=== PATIENT | female | born 1995 | race Caucasian/White ===

== ENCOUNTER 2022-08-16 12:10 | Outpatient (CLI) | payer MEDICAID, SELFPAY ==
--- NOTE | 2022-08-16 12:15 | CRLHL7_ITS ---
For Patients: As a result of the Cures Act, medical imaging exams and procedure reports are released immediately into your electronic medical record. You may view this report before your referring provider. If you have questions, please contact your health care provider. INDICATION: Evaluate size and dates TECHNIQUE: Ultrasound OB pelvis transvaginal. Real time garcia scale imaging of the pelvis was performed. COMPARISON: None FINDINGS: Sonographic imaging demonstrates a single living intrauterine gestation. The embryo demonstrates a regular cardiac rate measuring 176 beats per minute. The embryo`s crown rump length measurement of 1.8 cm corresponds to a gestational age of 8 weeks 2 days with a sonographic due date of 10/27/2022. There is a normal appearing yolk sac. There are no gross abnormalities noted within the embryo at this early state of development. The placenta has not yet developed. The gestational sac has a normal appearance and there is no evidence of a perigestational hemorrhage. The amount of fluid within the sac appears appropriate for gestational age. The cervix is closed. The myometrium appears normal. Left ovary is normal. The right ovary is not visualized. There are no suspicious fluid collections noted in the cul-de-sac. IMPRESSION: Viable intrauterine . Gestational age calculated at 8 weeks 2 days with a sonographic due date of 06/26/2023 . Image consistent with a severe no abnormalities seen. Dictated by sJ Treviño MD @ 08/16/2022 2:15:47 PM (Electronically Signed)
== END 2022-08-16 12:11 | disposition home or self-care (01) ==
PROVIDERS: Visit Provider Physician Assistant
DX: Z34.91 Encounter for supervision of normal pregnancy, unspecified, first trimester (principal); Z3A.08 8 weeks gestation of pregnancy
CPT/HCPCS: 76817

== ENCOUNTER 2022-08-16 13:14 | Outpatient (CLI) | payer MEDICAID, SELFPAY ==
[2022-08-16 17:20] LABS: Chlamydia DNA Amplified* NOT DETECTED (No Detected); GC DNA Amplified* NOT DETECTED (No Detected)
[2022-08-16 20:49] LABS: Hepatitis B Surface Antigen* Negative (Negative)
[2022-08-16 20:58] LABS: HIV 1/2/P24 Combo Screen* Negative (Negative)
[2022-08-16 21:07] LABS: Hepatitis C Virus Antibody* Negative (Negative)
[2022-08-19 06:56] LABS: Rapid Plasma Reagin (RPR) Non Reactive (Non Reactive)
== END 2022-08-16 13:15 | disposition home or self-care (01) ==
PROVIDERS: Visit Provider Physician Assistant
DX: O21.9 Vomiting of pregnancy, unspecified (principal); Z34.91 Encounter for supervision of normal pregnancy, unspecified, first trimester; Z3A.08 8 weeks gestation of pregnancy
CPT/HCPCS: 86592; 86703; 86762; 86787; 86803; 86850; 86900; 86901; 87086; 87340; 87491; 87591

== ENCOUNTER 2022-11-03 13:52 | Outpatient (CLI) | payer MEDICAID, SELFPAY | END 2022-11-03 13:53 | disposition home or self-care (01) | LOC: US 13:52 | PROVIDERS: Visit Provider Pediatrics Neonatal-Perinatal Medicine | DX: O34.212 Maternal care for vertical scar from previous cesarean delivery (principal); Z3A.19 19 weeks gestation of pregnancy | CPT/HCPCS: 76811 ==

== ENCOUNTER 2022-12-29 09:19 | Outpatient (CLI) | payer MEDICAID, SELFPAY | END 2022-12-29 09:20 | disposition home or self-care (01) | LOC: NFLDREF 12-31 15:28 | PROVIDERS: Visit Provider Obstetrics & Gynecology | DX: Z34.92 Encounter for supervision of normal pregnancy, unspecified, second trimester (principal); Z3A.27 27 weeks gestation of pregnancy | CPT/HCPCS: 86592 ==

== ENCOUNTER 2023-01-12 09:58 | Outpatient (CLI) | payer MEDICAID, SELFPAY ==
--- NOTE | 2023-01-12 09:45 | CRLHL7_ITS ---
For Patients: As a result of the Century Cures Act, medical imaging exams and procedure reports are released immediately into your electronic medical record. You may view this report before your referring provider. If you have questions, please contact your health care provider. INDICATION: Third trimester scan, evaluate growth. Obesity. COMPARISON: 11/03/2022 TECHNIQUE: Real time garcia scale imaging of the fetus was performed. FINDINGS: Sonographic imaging demonstrates a single living intrauterine gestation. Fetus demonstrates a regular cardiac rate of 130 beats per minute. Fetus has a breech position. The placenta lies anteriorly. Amniotic fluid volume appears normal and there is a single deepest vertical pocket: 8.3 cm. FELIPE 22.2 cm. The estimated weight is 1335gm which lies at the 19th %. On the prior OB ultrasound exam dated 11/03/2022 the estimated weight was at the 83rd%. BPD 16th percentile. HC 35th percentile. AC 28th percentile. FL 11th percentile. The HC/AC ratio measures 1.11 range (0.99-1.20). IMPRESSION: Sonographic gestational age 29 weeks 2 days and sonographic due date 03/28/2023. Good correlation with dates. Normal interval growth. Estimated weight 19 percentile. Abdominal circumference 28th percentile. Dictated by Js Merida MD @ 01/12/2023 11:38:44 AM (Electronically Signed)
== END 2023-01-12 09:59 | disposition home or self-care (01) ==
LOC: US 09:58
PROVIDERS: Visit Provider Obstetrics & Gynecology
DX: O99.213 Obesity complicating pregnancy, third trimester (principal); Z3A.29 29 weeks gestation of pregnancy
CPT/HCPCS: 76816

== ENCOUNTER 2023-02-24 08:13 | Outpatient (CLI) | payer MEDICAID, SELFPAY ==
--- NOTE | 2023-02-24 08:15 | US_ITS ---
Patient: YOANNA FAIR Facility:?[facility] Patient ID:?[id number] Site Patient ID:?[id number]. Site :?[id number] Study:?US-OB Pelvis -02/24/2023 8:59:55 AM Ordering Physician:ABEL TRIPP Final Report: INDICATION: OBESITY COMPARISON: 02/14/2023 TECHNIQUE: Real time garcia scale imaging of the fetus was performed. Without non-stress testing. FINDINGS: Sonographic imaging demonstrates a single living intrauterine gestation. Fetus demonstrates a regular cardiac rate of 145 beats per minute. Fetus has a vertex position. The amniotic fluid volume appears normal and there is a single deepest pocket measurement of 8.1 cm. The fetus was active and demonstrated normal breathing movements. There was normal flexion and extension of the trunk and extremities. IMPRESSION: Normal biophysical profile score of 8 out of 8. Dictated by Js Merida MD @ 02/24/2023 9:36:25 AM Signed by:?Js Merida MD @02/24/2023 9:36:25 AM (Electronic Signature)
== END 2023-02-24 08:14 | disposition home or self-care (01) ==
LOC: US 08:13
PROVIDERS: PCP Obstetrics & Gynecology; Visit Provider Obstetrics & Gynecology
DX: O99.210 Obesity complicating pregnancy, unspecified trimester (principal)
CPT/HCPCS: 76819

== ENCOUNTER 2023-02-24 09:12 | Outpatient (CLI) | payer MEDICAID, SELFPAY ==
[2023-02-25 13:57] LABS: Strep B DNA Probe Negative (Negative); Strep B Pen/Amox Allergy No
== END 2023-02-24 09:13 | disposition home or self-care (01) ==
LOC: NFLDREF 09:13
PROVIDERS: PCP Obstetrics & Gynecology; Visit Provider Obstetrics & Gynecology
DX: Z34.93 Encounter for supervision of normal pregnancy, unspecified, third trimester (principal); Z3A.35 35 weeks gestation of pregnancy
CPT/HCPCS: 87081; 87653

== ENCOUNTER 2023-02-25 10:45 | Outpatient (RCR) | payer MEDICAID, SELFPAY | END 2023-04-18 14:45 | disposition home or self-care (01) | PROVIDERS: PCP Obstetrics & Gynecology; Visit Provider Obstetrics & Gynecology | DX: O26.899 Other specified pregnancy related conditions, unspecified trimester (principal); M54.50 Low back pain, unspecified; Z51.89 Encounter for other specified aftercare | CPT/HCPCS: 97110; 97161 ==

== ENCOUNTER 2023-02-28 12:57 | Outpatient (CLI) | payer MEDICAID, SELFPAY ==
--- NOTE | 2023-02-28 13:00 | CRLHL7_ITS ---
For Patients: As a result of the Century Cures Act, medical imaging exams and procedure reports are released immediately into your electronic medical record. You may view this report before your referring provider. If you have questions, please contact your health care provider. INDICATION: 27 year-old female. Obesity. Evaluate well-being. COMPARISON: February 24, 2023. TECHNIQUE: Real time garcia scale imaging of the fetus was performed. Without non-stress testing. FINDINGS: Sonographic imaging demonstrates a single living intrauterine gestation. Fetus demonstrates a regular cardiac rate of 125 beats per minute. Fetus has a vertex orientation. The amniotic fluid volume appears normal and there is a single deepest pocket measurement of 5.7 cm. The fetus was active and demonstrated normal breathing movements. There was normal flexion and extension of the trunk and extremities. Anterior placenta. IMPRESSION: Normal biophysical profile score of 8 out of 8. Dictated by Tavares Lala MD @ 02/28/2023 2:07:31 PM (Electronically Signed)
== END 2023-02-28 12:58 | disposition home or self-care (01) ==
LOC: US 12:57
PROVIDERS: Visit Provider Obstetrics & Gynecology
DX: O99.210 Obesity complicating pregnancy, unspecified trimester (principal)
CPT/HCPCS: 76819

== ENCOUNTER 2023-03-08 13:06 | Outpatient (CLI) | payer MEDICAID, SELFPAY ==
--- NOTE | 2023-03-08 13:00 | CRLHL7_ITS ---
For Patients: As a result of the Century Cures Act, medical imaging exams and procedure reports are released immediately into your electronic medical record. You may view this report before your referring provider. If you have questions, please contact your health care provider. INDICATION: OBESITY COMPARISON: 02/28/2023 TECHNIQUE: Real time garcia scale imaging of the fetus was performed. Without non-stress testing. FINDINGS: Sonographic imaging demonstrates a single living intrauterine gestation. Fetus demonstrates a regular cardiac rate of 141 beats per minute. Fetus has a vertex position. The amniotic fluid volume appears increased and there is a single deepest pocket measurement of 11.8 cm. FELIPE 29.9 cm. The fetus was active and demonstrated normal breathing movements. There was normal flexion and extension of the trunk and extremities. IMPRESSION: Normal biophysical profile score of 8 out of 8. Polyhydramnios. Dictated by Js Merida MD @ 03/08/2023 2:45:20 PM (Electronically Signed)
== END 2023-03-08 13:07 | disposition home or self-care (01) ==
LOC: US 13:07
PROVIDERS: Visit Provider Obstetrics & Gynecology
DX: O99.210 Obesity complicating pregnancy, unspecified trimester (principal); O40.9XX0 Polyhydramnios, unspecified trimester, not applicable or unspecified; Z3A.00 Weeks of gestation of pregnancy not specified
CPT/HCPCS: 76819

== ENCOUNTER 2023-03-14 12:53 | Outpatient (CLI) | payer MEDICAID, SELFPAY ==
--- NOTE | 2023-03-14 13:00 | CRLHL7_ITS ---
For Patients: As a result of the Century Cures Act, medical imaging exams and procedure reports are released immediately into your electronic medical record. You may view this report before your referring provider. If you have questions, please contact your health care provider. INDICATION: MORBID OBESITY TECHNIQUE: Real time garcia scale imaging of the fetus was performed. COMPARISON: 03/08/2023 FINDINGS: Sonographic imaging demonstrates a single living intrauterine gestation. Fetus demonstrates a regular cardiac rate of 139 beats per minute. Fetus has a vertex position. The placenta lies anteriorly. Amniotic fluid volume appears normal and there is a single deepest pocket of 6.2 cm. The estimated weight is 3397gm which lies at the 57th %. On the prior OB ultrasound dated 02/14/2023 the estimated weight was at the 52nd percentile. BPD 42nd percentile. HC 31st percentile. AC 78th percentile. FL 18th percentile. The fetus was active and demonstrated normal breathing movements. There was normal flexion and extension of the trunk and extremities. IMPRESSION: Normal biophysical profile score 8/8. Sonographic gestational age 37 weeks 6 days and sonographic due date 03/25/2023. Good correlation with dates. Normal interval growth. Estimated weight 57th percentile. Abdominal circumference 78th percentile. Dictated by Js Merida MD @ 03/14/2023 3:21:45 PM (Electronically Signed)
== END 2023-03-14 12:54 | disposition home or self-care (01) ==
LOC: US 12:54
PROVIDERS: Visit Provider Obstetrics & Gynecology
DX: O99.213 Obesity complicating pregnancy, third trimester (principal); Z3A.37 37 weeks gestation of pregnancy
CPT/HCPCS: 76816; 76819

== ENCOUNTER 2023-03-18 07:06 | Inpatient (IN) | payer MEDICAID, SELFPAY ==
[2023-03-18] VITALS (29 sets, daily range): BP systolic 86–113; BP diastolic 48–78; PULSE 68–96; RESP 16–18; TEMP 36.3–37.1; O2SAT 0–99; BMI 50.9
[2023-03-18 08:10] LABS: Hemoglobin* 11.5 gm/dL (12.0-16.0)
[2023-03-18] MEDS: LACTATED RINGERS 1000 ML 1,000 ML IV (08:25)
--- NOTE | 2023-03-18 12:15 | P.LDBA_ITS ---
Subjective History of Present Illness Time Seen by Provider: 10:00 Date Seen: 03/18/23 Narrative: Patient is being admitted to Labor and Delivery for repeat delivery. She is a 27 year old at 39 0/7 weeks gestation. Her full history and physical was dictated by Dr. FUNK on 03/08/23. Please see this for details. Specific Issues/Plans Scheduled RLTCS on 03/18/23. Daughter: Eri. Baby: Girl Ly {Iwona-zuly} Gene 1. Obesity , BMI 44 * Hemoglobin A1c: 5.2% * Referral to exhauster engineer: Patient declined * Anesthesia consult:Ordered 12/29/22 * Level 2 ultrasound and consult with M: 11/03/2022, normal, though somewhat limited heart views due to anterior placenta and maternal abdominal wall thickness. Repeat assessment of cardiac structures and growth ultrasound recommended at 30+ weeks gestation. Ordered on 11/16/22 to be performed at around 25 weeks. * [facility] US level 2 on 12/15/22: Confirmed normal anatomy * Early 1 hour GTT 16-20 weeks:96 normal * Weekly BPP and/or NST starting at 34 weeks: * Growth ultrasound recommended to start around 28 weeks by [facility] * 30 weeks: Breech. EFW 18.5%, AC 28%, all growth parameters within normal ranges. FELIPE 22.2 cm, SDP 8.3 cm. * 02/14/2023 34wks: Vtx, SDP 3.2cm. EFW 2482 g, 5 lb 8 oz. =52%. BPD 29%, HC 19%, AC 79%, FL 24%. 2. History of , induction for postdates. Arrest of dilation and OT position. Infant 7 lbs 5 oz. Predicted chance of success: 24.5% * Desires repeat * TOLAC consent reviewed: Desires repeat 3. Nausea and vomiting * Vitamin B6 and Unisom, 1st OB added omeprazole and Zofran, IV fluids given at 1st OB 4. Tobacco use, 10 cigarettes per day pre , quit at approximally 4 weeks 5. History of depression OB - Problem Based A/P Additional Plan (1) History of section complicating : Status: Acute (2) Obesity: Status: Acute Plan 1. Repeat section. We had already discussed recommendation for pp anticoagulation with daily Lovenox until discharge from hospital. OB Exam Physical Exam Vital signs: Pulse BP Pulse Ox 96 109/55 L 97 03/18/23 07:31 03/18/23 07:31 03/18/23 07:29 Detailed Labor and Delivery Exam Patient Gravid: Yes Fetus (Single) Amniotic Membrane Status: intact Heart Rate Baseline: 130 Monitor Accelerations: Present Monitor Decelerations: None Director Of Accreditation Variability: Moderate (6-25)
--- NOTE | 2023-03-18 12:18 | W.ANESCHARGE ---
Anesthesia Charges Start Date/Time Anesthesia Start Date: 03/18/23 Anesthesia Start Time: 10:40 Stop Date/Time Anesthesia Stop Date: 03/18/23 Anesthesia Stop Time: 12:10
--- NOTE | 2023-03-18 12:19 | P.OBPRC_ITS ---
Procedure Time Seen by Provider: 10:00 Date of procedure: 03/18/23 Pre-op diagnosis: IUP at 39 0/7, Previous x1 desiring repeat Post-op diagnosis: same (Now delivered) Procedure Done: Global Will [facility] bill your pro fee for this procedure?: Yes Blood Loss Measurement Type: QBL Bakri Used: No IV fluids (mL): 1,300 Urine Output (mL): 200 Surgeon: Jess Cloud Director [place]: Michael Mitchell Anesthesia type: Spinal Findings: FINDINGS: Live-born female , cephalic presentation, Apgars 7, 7 and 8 at 1, 5 and 10 minutes respectively. weight pending. Normal appearing uterus, tubes, and ovaries. Dense adhesions between fascia, rectus muscles, omentum, anterior peritoneum, lower uterine segment, bladder. Procedure Description: PROCEDURE: After obtaining informed consent, the patient was taken to the operating room where spinal anesthesia was obtained and found to be adequate. She was prepared and draped in the normal sterile fashion in the dorsal supine position with a leftward tilt. A Pfannenstiel skin incision was made with a scalpel along the line of the patient's previous Pfannenstiel scar. This in cision was carried down to the underlying layer of fascia with thescalpel and Bovie. The fascia was incised in the midline and the incision extended laterally. The superior and inferior aspects of the fascial incision were grasped with Skip clamps, elevated and the underlying rectus muscles dissected off sharply and with electrocautery. This dissection took an increased amount of time given the dense adhesions. The rectus muscles were then in the midline. The adhesions between the bladder and lower uterine segment were taken down sharply with Metzenbaum scissors. The Anthony O retractor was then placed into the incision. The lower uterine segment was then incised in a transverse fashion with the scalpel. Upon entry into the uterus, clear amniotic fluid was noted. The uterine incision was extended cephalo caudally with blunt finger fractionation. The 's head was delivered atraumatically, followed by the remainder of the 's body. The nose and mouth were suctioned with the bulb suction. The cord was doubly clamped and cut, and the infant was handed off the field to [facility] for evaluation. The placenta was delivered spontaneously with umbilical cord traction and fundal massage. The uterus was cleared of all clots and debris. The uterine incision was reapproximated in a running locking fashion with a 0 Vicryl suture. A 2nd layer of the same suture was used to imbricate in horizontal fashion. The gutters were inspected and cleared of blood clots. All instruments and retractors were removed. The subfascial tissues were carefully inspected and hemostasis assured. The fascia was reapproximated in a running fashion with a looped 0 PDS suture. The subcutaneous tissues were copiously irrigated. Hemostasis was assured. The subcutaneous fat layer was reapproximated with interrupted sutures of 3-0 Vicryl. The skin was closed in a subcuticular fashion with 4-0 Monocryl. Silver dressing applied and will be left in place for 1 week. The patient tolerated the procedure well. Sponge, lap, needle, and instrument counts were reported as correct x2. The patient was taken to the recovery room, awake, and in stable condition. She did receive 3 grams of IV Ancef preoperatively. Complications: None Condition: stable Disposition: floor OB Delivery Proc Additional Procedures Tubal Ligation at the time of : No
--- NOTE | 2023-03-18 16:56 | W.PM.NB ---
Nerve Block Nerve Block Time Seen by Provider: 11:58 Date Seen: 03/18/23 Type of block requested by surgeon for post-operative analgesia: TAP Side: bilateral Time out performed: Yes Verification of patient name: Yes Verification of date of : Yes Name of person performing procedure: JERALD Yeung Continuous monitoring Was continuous monitoring of O2 sat, B/P, phototypesetting equipment monitor, recorded every 15 minutes?: Yes Procedure Checklist: sterile prep, needles and gloves Ultrasound guided. Images saved: Yes Medications given in 5ml increments after negative aspiration: Marcaine %: 0.25 mL: 40 Needle gauge: 20 and Exparel mL: 10 Needle gauge: 20 Patient tolerated procedure well: Yes Block Charges Block Charge (with Pro Fee): TAP Bilateral Use of Ultrasound Machine for Block: Yes- US Guidance/pain block
[2023-03-18] MEDS: KETOROLAC 30 MG/ML inj IVP ×2 (17:47→23:50)
[2023-03-18] MEDS: ENOXAPARIN 40 MG/0.4 ML INJ SUBCUT (23:49)
[2023-03-19] VITALS (11 sets, daily range): BP systolic 92–115; BP diastolic 57–71; PULSE 65–92; RESP 16–18; TEMP 36.6–37; O2SAT 96–99
[2023-03-19] MEDS: KETOROLAC 30 MG/ML inj IVP ×2 (05:34→11:50)
[2023-03-19 06:55] LABS: Hemoglobin* 9.9 gm/dL (12.0-16.0)
--- NOTE | 2023-03-19 09:52 | PM.OBPNVD1 ---
OB - PN:Subj Subjective Date Seen: 03/19/23 Interval history: Neela is a 27-year-old G3 now P2-0-1-2 woman who is s/p repeat on 03/18/23 at 39 0/7 weeks' gestation. She was delivered of a baby girl. OB Problem List: 1. Obesity , BMI 44 Hemoglobin A1c: 5.2% 2. History of after induction for postdates. Arrest of dilation and OT position. 7 lbs 5 oz. Desires repeat . 3. Nausea and vomiting Vitamin B6 and Unisom, 1st OB added omeprazole and Zofran, IV fluids given at 1st OB 4. Tobacco use, 10 cigarettes per day pre , quit at approximally 4 weeks 5. History of depression Narrative: She is generally doing well. Her infant daughter is doing well and is . She had some struggles with severe constipation after her 1st child, and this eventually led to inability to sit upright and decrease in breast milk supply. She would like to continue feeding her baby with exclusively breast milk this time around. She is taking stool softeners. She denies any heavy bleeding. She has started ambulating. No difficulties with urinating. She is tolerating regular diet and passing flatus. She has a silver dressing in place. OB - PN: Obj Exam Physical Exam: Vital signs: Temp Pulse Resp BP Pulse Ox O2 Del Method 98.2 F 65 18 115/57 L 98 Room Air 03/19/23 08:10 03/19/23 08:10 03/19/23 08:10 03/19/23 08:10 03/19/23 08:10 03/19/23 08:10 Narrative: General: Pleasant, no acute distress Heart: Regular rate and rhythm, no murmur or gallop Lungs: Clear to auscultation bilaterally Abdomen: Soft, normoactive bowel sounds in all 4 quadrants, nontender, fundus well below umbilicus, silver dressing dry and intact beneath pannus Lower extremities: 3+ edema bilaterally, no erythema Urinary Catheter Management: Urethral: Cath placed during this visit: yes Urethral indwelling: No Insertion date: 03/18/23 Insertion time: 10:52 OB - PN: Obj Data Labs Labs: Laboratory Results - last 24 hr 03/19/23 06:36 Hgb 9.9 L OB - PN: A/P Delivery Assessment and Plan (1) Status post repeat low transverse section: Status: Acute Assessment and Plan: Appropriate postoperative course. Continue to ambulate regularly. Anticipate discharge tomorrow. (2) Anemia associated with acute blood loss: Status: Acute Assessment and Plan: Begin ferrous sulfate q.o.d.. I recommended she discontinue if this leads to severe constipation. (3) Constipation: Status: Acute Assessment and Plan: History of severe constipation complicating course. We will continue stool softeners, but will begin MiraLax nightly, and titrate to effect. Plan Plan: routine care
[2023-03-19] MEDS: DOCUSATE SODIUM 100 MG CAPSULE PO (10:02)
[2023-03-19] MEDS: OXYCODONE 5 MG TABLET PO ×2 (14:58→23:51)
[2023-03-19] MEDS: IBUPROFEN 600 MG TABLET PO (18:24)
[2023-03-19] MEDS: ENOXAPARIN 40 MG/0.4 ML INJ SUBCUT (23:51)
[2023-03-20] MEDS: IBUPROFEN 600 MG TABLET PO ×2 (01:14→08:02)
[2023-03-20] MEDS: OXYCODONE 5 MG TABLET PO ×2 (06:32→11:21)
[2023-03-20 07:44] VITALS: BP 122/75; PULSE 90; RESP 16; TEMP 37.1; O2SAT 96
[2023-03-20] MEDS: DOCUSATE SODIUM 100 MG CAPSULE PO (08:03)
--- NOTE | 2023-03-20 10:50 | P.DS_ITS ---
DS: Providers Provider Date Seen: 03/20/23 Date of admission: 03/18/23 07:06 Primary care physician: Beatriz Chandler MD Admitting Clinician: Jess Cloud MD Attending Physician on discharge: Jess Cloud MD Date of Discharge: 03/20/23 DS: Diagnosis Discharge Diagnosis (1) Constipation: Status: Acute (2) Anemia associated with acute blood loss: Status: Acute (3) Status post repeat low transverse section: Status: Acute Exam Narrative: Exam Narrative: General: Pleasant, no acute distress Heart: Regular rate and rhythm, no murmur or gallop Lungs: Clear to auscultation bilaterally Abdomen: Soft, normoactive bowel sounds, nontender, fundus well below umbilicus, silver dressing clean, dry, and intact Lower extremities: 1+ edema to bilateral shins, no erythema Const: Vital Signs, click to edit/add: Vital Signs - 24 hr 03/19/23 15:48 03/19/23 23:49 03/20/23 07:44 Temperature 98.5 F 98.6 F 98.7 F Pulse Rate [Pulse Oximeter] 92 68 90 Respiratory Rate 16 18 16 Blood Pressure [Le ft Arm] 92/59 L 106/71 122/75 Pulse Oximetry 99 98 96 Oxygen Delivery Me thod Room Air Room Air Room Air OB - DS: Summary Hospital Course Hospital Course: Neela is a 27-year-old G3 now P2-0-1-2 woman who is s/p repeat on 03/18/23 at 39 0/7 weeks' gestation. She was delivered of a baby girl. OB Problem List: 1. Obesity , BMI 44 Hemoglobin A1c: 5.2% 2. History of after induction for postdates. Arrest of dilation and OT position. 7 lbs 5 oz. Desires repeat . 3. Nausea and vomiting Vitamin B6 and Unisom, 1st OB added omeprazole and Zofran, IV fluids given at 1st OB 4. Tobacco use, 10 cigarettes per day pre , quit at approximally 4 weeks 5. History of depression Today, on postoperative day 2, she is doing well. She has been taking oxycodone sparingly for incisional pain. She has been tolerating regular diet but has not had bowel movement yet. She has been taking stool softeners. She did not yet received MiraLax dose. Her infant daughter is doing well and is . She denies any heavy bleeding. She has started ambulating. No difficulties with urinating. She was started on iron for anemia yesterday. Vitals have been stable throughout her course. She has been afebrile. Peripartum Data Procedures: Procedures Operation Date: 03/18/23 09:45 Actual Procedure Side Surgeon p Repeat Section Jess Cloud MD Infant Gender: Female Time Spent with Patient Time attestation: Total time spent providing and/or coordinating discharge services: Discharge Plan Discharge Disposition: Home, Self-Care Date of Admission: 03/18/23 07:06 Attending Provider on Discharge: Beatriz Chandler Primary Care Provider: Beatriz Chandler Condition: Improved Anticipated Discharge Date/Time: 03/20/23 11:15 Discharge Medications: New polyethylene glycol 3350 [Miralax] 17 gram Powder In Packet 17 g PO HS Qty: 0 0RF ferrous sulfate 325 mg (65 mg iron) Tablet 650 mg PO Q48H Qty: 40 0RF docusate sodium 100 mg Capsule 100 mg PO BID PRN (Reason: Constipation) Qty: 60 0RF ibuprofen 600 mg Tablet 600 mg PO Q6H PRN (Reason: Pain) Qty: 60 0RF oxycodone 5 mg Tablet 5 - 10 mg PO Q4H PRN (Reason: Pain) Qty: 20 0RF Lanolin (HPA) 100 % Cream 1 applic topical Q1H PRNQty: 0 0RF Continued DHA 200 mg capsule See Rx Instructions PO DAILY Rx Instructions: 1 tablet orally daily; calcium carbonate [Tums] 200 mg calcium (500 mg) tablet,chewable 200 mg PO BID Discharge Orders: Discharge Order (Routine); Ordered 03/20/23 Ordered By: Beatriz Chandler Patient Education: OB /Breast Feeding Additional Instructions: Discharge instructions were reviewed with the patient including signs and symptoms of infection and home going medications Lifting Restrictions: 20 pounds for 6 weeks No not submerge incision under water X 2 weeks? Nothing vaginally for 6 weeks: no tampons or intercourse Do not drive while taking narcotic pain medication(s) Off Work or School for 8 weeks Symptoms to report to doctor: * Bleeding that saturates more than one pad per hour * Passing clots larger than the size of a golf ball * Pain not relieved by prescribed medication * Fever above 100.4 degrees Fahrenheit * A foul vaginal odor * Difficulty in emotions, mood, and functions * Thoughts of hurting yourself and/or * Painful, reddened area in your breast * Any drainage, redness, or tenderness in your IV/epidural site * Severe headache that doesn't improve after taking medications * Changes in vision, including temporary loss of vision, blurred vision, and/or light sensitivity * Upper abdominal pain (usually under ribs on the right side) * Decrease in urination or painful, frequent urinating * Chest pain * Shortness of breath * Tenderness or pain with redness and/swelling in the calf(s) of your leg Follow up 1 week for removal of silver dressing. Optional 2-week visit: incision check, discuss infant feeding concerns, review control options and screen for anxiety/depression. 6-week visit for an annual exam. consultation services are available to all mothers and babies for the first year after delivery.? To make an appointment, please call [phone]. Discharge Diet: Regular Follow Up Appointments: Beatriz Chandler MD [Primary Care Provider] - Forms: [employer] Info Instructions DS:Data Additional Comments Additional comments: Hemoglobin 9.9 on postoperative day 1
[2023-03-20] MEDS: polyethylene glycoL 3350 17 GM PACK PO (11:21)
== END 2023-03-20 13:10 | disposition home or self-care (01) | DRG 787 ==
PROVIDERS: Admitting Provider Obstetrics & Gynecology; PCP Obstetrics & Gynecology; Visit Provider Obstetrics & Gynecology
PROC: 10D00Z1 Extraction of Products of Conception, Low, Open Approach (ICD-10-PCS; CPT 59514; principal; 2023-03-18 09:30)
DX: O34.211 Maternal care for low transverse scar from previous cesarean delivery (principal); D62 Acute posthemorrhagic anemia; O99.214 Obesity complicating childbirth; E66.9 Obesity, unspecified; O90.81 Anemia of the puerperium; K59.00 Constipation, unspecified; Z3A.39 39 weeks gestation of pregnancy; Z37.0 Single live birth; G89.18 Other acute postprocedural pain
CPT/HCPCS: 01961; 36415; 64488; 76942; 85018; 86850; 86900; 86901; A9270; C9290; J0665; J1650; J1885; J2274; J2371; J2405; J2590; J2765; J7120

== ENCOUNTER 2025-03-16 12:58 | Emergency (ER) | payer MEDICAID, SELFPAY ==
--- OUTSIDE RECORDS SUMMARY | 2025-03-16 13:00 | XMS_ITS | Clinical Summary ---
Author Organization [facility] Address [address] [place] [id number] Care Team Providers Care Data Governance Consultant Name Role Phone Unavailable Primary Care Provider Unavailabl e Active Problems No known active problems Social History Tobacco Use Types Packs/Day Years Used Date Smoking Tobacco: Never Assessed Adolescent Education Answer Date Record ed Getting School Help Needed Not on file 06/04 Comments No Sex and Gender Information Value Date Recorded Sex Assigned at Not on file Legal Sex Female 12:41 PM CDT Gender Identity Not on file Sexual Orientation Not on file Plan of Treatment Health Maintenance Due Date Last Done Comments ADVANCE CARE PLANNING 1997 ANNUAL REVIEW OF HM ORDERS 1997 YEARLY PREVENTIVE VISIT 2000 HIV SCREENING 2012 HEPATITIS C SCREENING 2015 PAP 2018 COVID-19 VACCINE ( season) 2024 03/17/2022, 02/18/2022 PHQ-2 (once per calendar year) 2024 INFLUENZA VACCINE (Season Ended) 2025 06/03/2015, 2014, 09/20/2006 DTAP/TDAP/TD VACCINE (8 - Td or Tdap) 03/25/2030 03/25/2020, 08/23/2012, 06/05/2002, Additional history exists ZOSTER VACCINE (1 of 2) 2047 HEPATITIS B VACCINE Completed 01/02/1998, 1997, 1997, Additional history exists HPV VACCINE Completed 12/16/2011, 072 09/2010, 11/02/2010 MENINGITIS VACCINE Aged Out 12/16/2011 No longer eligible based on patient's age to complete this topic PNEUMOCOCCAL VACCINE: PEDIATRICS (0 to 5 YEARS) AND AT-RISK PATIENTS (6 to 49 YEARS) Aged Out No longer eligible based on patient's age to complete this topic Insurance [facility]
--- OUTSIDE RECORDS SUMMARY | 2025-03-16 13:00 | XMS_ITS | Encounter Summary ---
Author Organization [facility] Address [address] [place] [address] Care Team Providers Care Seconds Handler Name Role Phone Kosta Staples P.A.-C. Primary Care Provider Encounter Details Date Type Department Care Team (Late st Contact Info) Description 01/10/2025 Results Follow-Up Department of Family Medicine, [facility], in [place], [place] [address] [place] [phone] ParkerDenise Felipe APRN, C.N.P., D.N.P. [address] [phone] Vaginitis Panel, Amplified RNA, Urinalysis with Microscopic if Indicated: Urine, Midstream, Microscopic Manual, Bacterial Culture, Aerobic + Susceptibility, Urine Social History Tobacco Use Types Packs/Day Years Used Date Smoking Tobacco: Every Day Cigarettes Smokeless Tobacco: Current Alcohol Use Standard Drinks/Week Comments Not Currently 0 (1 standard drink = 0.6 oz pur e alcohol) rarely when not Humiliation, Afraid, Rape, and Kick questionnair e Answer Date Recorded Within the last year, have y ou been afraid of your partner or ex-partner? No 02/18/2022 Within the last year, have y ou been humiliated or emotionally abused in other ways by your partner or ex-partner? No Within the last year, have y ou been kicked, hit, slapped, or otherwise physically hurt by your partner or ex-partner? No 02/18/2022 Within the last year, have y ou been raped or forced to have any kind of sexual activity by your partner or ex-partner? No 02/18/2022 Hunger Vital Sign Answer Date Recorded Within the past 12 months, y ou worried that your food would run out before you got the money to buy more. Sometimes true Within the past 12 months, t he food you bought just didn't last and you didn't have money to get more. Sometimes true 05/2022 PRAPARE - Transportation Answer Date Re corded In the past 12 months, has l ack of transportation kept you from medical appointments or from getting medications? No 05/2022 In the past 12 months, has l ack of transportation kept you from meetings, work, or from getting things needed for daily living? No 02/18/2022 Housing Stability Vital Sign Answer Ced e Recorded In the last 12 months, was t here a time when you were not able to pay the mortgage or rent on time? No 02/18/2022 In the last 12 months, how many places have you lived? 2 02/18/2022 In the last 12 months, was t here a time when you did not have a steady place to sleep or slept in a correction (including now)? No 02/18/2022 Depression Answer Date Recor ded PHQ-9 Total Score (max 27) 3 11/12 Education Answer Date Recorded What is the highest level of school you have completed or the highest degree you have received? 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 [address] [place], [place] [address] [phone] PCP - General 02/24/17 documented as of this encounter
--- OUTSIDE RECORDS SUMMARY | 2025-03-16 13:00 | XMS_ITS | Clinical Summary ---
Author Organization [employer] [facility] Address [address] [place] [id number] Care Team Providers Care Business System Consultant Name Role Phone Kosta Staples Primary Care Provider [phone] Allergies Active Allergy Reactions Criticality Noted Date Comments Acetaminophen Nausea And Vomiting Low 08/12/2018 Not true allergy but adverse reaction. Medications albuterol HFA (PRO-AIR,VENTOLIN, PROVENTIL) 90 mcg/actuation inhalerIndications :Acute bronchitis, unspecified organism Inhale 2 Puffs by mouth every 6 hours if needed. 1 Inhaler 09/23/19 20 Active pseudoephedrine (SUDAFED) 30 mg tabletIndications: Viral sinusitis,Nasal congestion Take 2 Tablets (60 mg) by mouth every 6 hours if needed for Nasal Congestion. 30 Tablet 07/01/20 21 Active traMADoL (ULTRAM) 50 mg tabletIndications: Right upper quadrant abdominal pain Take 1 Tablet (50 mg) by mouth 3 times daily if needed for Pain. 15 Tablet 04/22/20 23 Active ibuprofen (ADVIL; MOTRIN) 600 mg tabletIndications: Calculus of gallbladder without cholecystitis without obstruction Take 1 Tablet (600 mg) by mouth every 6 hours if needed for Pain. Maximum of 3200 mg in 24 hours. 25 Tablet 3 8:27 PM CDT 05/02/20 23 Active oxyCODONE (ROXICODONE) 5 mg immediate release tabletIndications: Calculus of gallbladder without cholecystitis without obstruction Take 1 Tablet (5 mg) by mouth every 4 hours if needed for Pain. 15 Tablet 3 8:27 PM CDT 05/02/20 23 Active polyethylene glycoL (MIRALAX) 17 gram/scoop powderIndications: Calculus of gallbladder without cholecystitis without obstruction Mix 1 scoop (17 g) in liquid then take by mouth once daily if needed for Constipation (Take daily on days you are taking opioid pain medicine.). 238 g 3 8:27 PM CDT 05/02/20 23 Active ondansetron (ZOFRAN ODT) 4 mg disintegrating tabletIndications: Gastroenteritis Place 1 Tablet (4 mg) on the tongue every 8 hours if needed for Nausea/Vomiting. 10 Tablet 11/09/19 25 Active loperamide (IMODIUM) 2 mg capsuleIndications :Gastroenteritis Take 2 capsules (4mg) orally with 1st loose stool, then 1 capsule (2mg) with other loose stools. Max 16 mg in 24 hrs. 40 Capsule 11/09/19 25 Active Active Problems Problem Noted Date Diagnosed Date Calculus of gallbladder with biliary obstruction but without cholecystitis 05/02/2023 Encounter for supervision of normal first , first trimester 12/13/2019 Vitamin D deficiency 11/01/2019 Overview (11/16/2020): Ergocalciferol 50,000 IU weekly x 8 weeks. Then daily vitamin D3. Morbid obesity 10/23/2019 Overview (11/16/2020): Dating US was performed today. Plan early GCT, hgb A1c, vitamin D level, and folic acid supplementation 5 mg daily. VICKY screening was negative. Plan MFM consult and Level II US at 20 weeks. Delivery recommendations per MFM. Recommended weight gain for is <11-20 lbs. No weight gain in the 2nd and 3rd trimesters is optimal. Plan echocardiogram at 22 weeks and serial growth US q6 weeks after Level II US. Plan weekly testing beginning at 32 weeks. Plan anesthesia consult in the 3rd trimester. Plan continuous monitoring and IV access in labor. Will consider TXA for PPH prevention. Will recommend aspirin for prophylaxis at 12 weeks. Mixed anxiety depressive disorder 10/28/2015 Overview (11/16/2020): No meds currently. No mood concerns at this time. 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 08/06/2015 Regular astigmatism 08/06/2015 Hyperopia 06/21/2011 Acne 04/01/2011 Social History Tobacco Use Types Packs/Day Years Used Date Smoking Tobacco: Former Cigarettes Smokeless Tobacco: Never Tobacco Cessation:Counseling Given: Not Answered Alcohol Use Standard Drinks/Week Comments No 0 (1 standard drink = 0.6 oz pur e alcohol) Social Connections Answer Date Recorded Frequency of Communication with Friends and Fami ly Not on file 05/13/2024 Financial Resource Strain Answer Date R ecorded Difficulty of Paying Living Expenses 3 04/21/2023 Difficulty of Paying Living Expenses Not on file 04/21/2023 Food Insecurity Answer Date Recorded Worried About Running Out of Food in the Last Ye ar 1 04/21/2023 Transportation Needs Answer Date Record ed Lack of Transportation (Medical) 1 04/21/2023 Housing Stability Answer Date Recorded Unable to Pay for Housing in the Last Year 1 04/21/2023 Interpersonal Safety Answer Date Record ed Are you being hit, kicked, p ushed or yelled at (see row info)? No 11/09/2024 Interpersonal Safety Abuse 12 - 18 Not on file 11/09/2024 Interpersonal Safety Ambulatory Vulnerability No t on file 11/09/2024 Comments No Sex and Gender Information Value Date Recorded Sex Assigned at Not on file Legal Sex Female 7:42 AM FACILITY SECURITY OFFICER Gender Identity Female 04/03/2023 10:28 PM CDT Sexual Orientation Not on file Obstetrics History Para Term AB IAB SAB Ectopic Multiple Livin g Live Births 1 Date Outcome GA Total Labor Labor/2nd/3rd Weight Sex Type Anes PTL Rosa A1 A5 Name Clin Last Filed Vital Signs Vital Sign Reading Time Taken Comments Blood Pressure 116/74 11/09/2024 1:57 AM FACILITY SECURITY OFFICER Pulse 86 11/09/2024 1:57 AM FACILITY SECURITY OFFICER Temperature 36.8 C (98.2 F) 11/09/2024 1:57 AM FACILITY SECURITY OFFICER Respiratory Rate 16 11/09/2024 1:57 AM FACILITY SECURITY OFFICER Oxygen Saturation 99% 11/09/2024 1:57 AM FACILITY SECURITY OFFICER Inhaled Oxygen Concentration - - Weight 117.5 kg (259 lb) 11/09/2024 1:57 AM FACILITY SECURITY OFFICER Height 157.5 cm (5' 2) 11/09/2024 1:57 AM FACILITY SECURITY OFFICER Body Mass Index 47.37 11/09/2024 1:57 AM FACILITY SECURITY OFFICER Plan of Treatment Health Maintenance Due Date Last Done Comments Tetanus booster 2008 Depression screening for age 12+ 2009 HIV for age 15-65 2012 BMI (ht and wt on same day) for age 18+ 2015 Hepatitis C screening for ag e 18-79 2015 Hepatitis B series for 19+ ( 1 of 3 - 19+ 3-dose series) 2016 COVID-19 vaccine series ( season) 2024 03/17/2022, 02/18/2022 Influenza Vaccine (#1) 2025 Pap test for age 21-65 05/18/2026 05/18/2023 Pneumococcal series for age 6-49 Aged Out No longer eligible b ased on patient's age to complete this topic Procedures Procedure Name Priority Date/Time Associated Diagnosis Comments WINDOWS INFRASTRUCTURE ENGINEER THIN PREP PAP SCREEN IMAGED Routine 05/18/2023 12:00 PM CDT from Last 3 Months or Most Recently Relevant to Health Maintenance Results * WINDOWS INFRASTRUCTURE ENGINEER THIN PREP PAP SCREEN IMAGED (05/18/2023 12:00 PM CDT) Case Report Gynecologic Cytology Report Case: [id number] Authorizing Provider: Shea Ambriz PA-C Collected: 05/18/2023 1200 Ordering Location: [facility] Received: 05/18/2023 6597 First Screen: Raimundo Burden Specimen: WINDOWS INFRASTRUCTURE ENGINEER ThinPrep Vial Screening, Cervical 05/24/2023 11:53 AM CDT [facility] INTERPRETATION/ RESULT NEGATIVE FOR INTRAEPITHELIAL LESION OR MALIGNANCY (NIL) (none) 05/24/2023 11:53 AM CDT [facility] at 1153 CDT ORGANISM(S) Fungal organisms morphologically consistent with Kianna species 05/24/2023 11:53 AM CDT [facility] SPECIMEN ADEQUACY Satisfactory for evaluation No endocervical component seen 05/24/2023 11:53 AM CDT [facility] HPV REQUEST HPV not requested 2022 11:53 AM CDT [facility] Date of LMP 06/18/2022 05/24/2023 11:53 AM CDT [facility] Last Pap Date 12/23/2019 05/24/2023 11:53 AM CDT [facility] Last Pap Result NIL 11:53 AM CDT [facility] Abnormal Pap or [place] Bx in last 5 years No 05/24/2023 11:53 AM CDT [facility] Menstrual Status 05/24/2023 11:53 AM CDT [facility] [place] Bx Done Today No 05/24/2023 11:53 AM CDT [facility] Additional Information 05/24/2023 11:53 AM CDT [facility] Comment: Interpreted at Laboratory - [address] [place] [address], [place] [address] Automated Review Successful 05/24/2023 11:53 AM CDT [facility] Comment:Specimen processed s uccessfully by automated sewer separation designer device, ThinPrep Imaging System, [employer] Note The pap test is a screening technique, not a diagnostic procedure. It is used primarily to screen for squamous cancers and precursor lesions. Published studies have shown that it is subject to both false negative and false positive results. The pap test should not be used as the sole means to diagnose or exclude pre-malignant and malignant lesions. 05/24/2023 11:53 AM CDT [facility] Other (Cervical) 05/18/2023 12:00 PM CDT 05/18/2023 5:58 PM CDT us Shea Ambriz PA-C PATHOLOGY/CYTOLOGY Final R esult [facility] [address] [place] [address], from Last 3 Months or Most Recently Relevant to Health Maintenance Insurance [facility] Advance Directives * Full Code (Latest Code Status on File) Date Activated Date Inactivated Comments 05/02/2023 1:59 PM 05/02/2023 11:23 PM Question Answer Comments Code Status Discussion: Unable to Assess Preferences, Provider to review later * Full Code Date Activated Date Inactivated Comments 04/20/2023 1:43 PM 04/20/2023 5:10 PM Question Answer Comments Code Status Discussion: Unable to Assess Preferences, Provider to review later Care Teams Business System Consultant Relationship Specialty Start Date End Date Kosta Staples PA [address] [facility] [place] [phone] PCP - General Physician Strategic Advisor 05/02/23
--- OUTSIDE RECORDS SUMMARY | 2025-03-16 13:00 | XMS_ITS | Clinical Summary ---
Author Organization [facility] Address [address] [place] [address] Care Team Providers Care Storm Door Maker Name Role Phone Kosta Staples P.A.-C. Primary Care Provider Source Comments Patient records contain information from all sites at [facility]. For routine questions regarding patient records, call [phone] during business hours, M-F 8:00 AM - 5:00 PM Central Time. Record requests for emergency care only can be directed to [phone] at any time.[facility] Allergies Active Allergy Reactions Criticality Noted Date Comments Acetaminophen Nausea And Vomiting Low 08/12/2018 Not true allergy but adverse reaction. Medications metroNIDAZOLE (FLAGYL) 500 mg tablet Take 1 tablet (500 mg total) by mouth 2 (two) times a day. 14 tablet Active Additional Information Patient not taking.Reported on 01/09/2025 Active Problems Patient Care Coordination No te Formatting of this note migh t be different from the original. Atul OB patient Vitamin D deficiency: Weekly ergocalciferol 50,000 IU x 8 weeks, then daily vitamin D3 800 IU First trimester OB education completed. Pre-reg completed at [facility]. EDC by first trimester US: 06/14/20 provider: Bhaskar strength and conditioning coach FOB involved: Boyfriend, George OB labs O RH factor: positive Antibody screen: negative HBsAg: negative HIV: negative Syphilis: negative Rubella: immune Hgb: 13.2 Hct: 40.2 Platelets: 348 Pap smear: (date) Glucose screen: GBS culture: Problem Noted Date Diagnosed Date Morbid Obesity Body Mass Index 40.0-44.9 Adult 0 10/23/2019 Overview (10/23/2019): Dating US was performed today. Plan early GCT, hgb A1c, vitamin D level, and folic acid supplementation 5 mg daily. VICKY screening was negative. Plan MFM consult and Level II US at 20 weeks. Delivery recommendations per [facility]. Recommended weight gain for is <11-20 lbs. [...] recommend aspirin for prophylaxis at 12 weeks. Hyperopia 06/21/2011 Resolved Problems Problem Noted Date Diagnosed Date Resolved Date Examination Normal First First Trimester 12/13/2019 02/18/2022 Deficiency Vitamin D 11/01/2019 022 Overview (11/01/2019): Ergocalciferol 50,000 IU weekly x 8 weeks. Then daily vitamin D3. Examination Test W ith Positive Result 10/23/2019 12/13/2019 Overview (10/23/2019): The patient will return in 1 month for an OB visit with our OB educator and for her 1st trimester OB education. New OB labs in the near future. PhQ-9 score 1 today. Depression Anxiety 10/28/2015 2 Overview (10/23/2019): No meds currently. No mood concerns at this time. Abuse Tobacco Smoking 09/23/20152019 Overview (10/23/2019): Stopped when she found out she was . Astigmatism Regular Bilateral 08/06/2015 02/18/2022 Acne 04/01/2011 02/18/2022 Encounters Date Type Department Care Team Description 01/10/2025 Results Follow-Up Department of Family Medicine, [facility], in [place], [place] [address] [place] [address] Denise Templeton APRN, C.N.P., D.N.P. Vaginitis Panel, Amplified RNA, Urinalysis with Microscopic if Indicated: Urine, Midstream, Microscopic Manual, Bacterial Culture, Aerobic + Susceptibility, Urine 01/09/2025 4:13 PM CDT - 01/09/2025 11:59 PM CDT Hospital Encounter Department of Laboratory Medicine in [address] [address] Denise Templeton APRN, C.N.P., D.N.P. Dysuria Discharge Disposition: Home or Self Care 01/09/2025 4:00 PM CDT Office Visit Department of Family Medicine, [facility], in [address] [address] Denise Templeton APRN, C.N.P., D.N.P. Dysuria (Primary Dx); Vaginosis Bacterial from Last 3 Months Immunizations Immunization Administration Dates Next Due 4vHPV (discontinued) 12/16/2011,04/01/2011,11/02 9vHPV 12/16/2011,04/01/2011,11/02/2010 DT, Pediatric 03/31/2008 DTaP (Daptacel) 06/05/2002, 9,03/13/1998,1997,1997 DTaP (Infanrix, Tripedia) 06/05/2002,,03/13/1998,1997,1997 HepA Pediatric/Adolescent 04/24/2013,12/16/2011 HepA, Pediatric Unspecified 12/16/2011 HepB Adult 01/02/1998, 8,1997,1996 HepB Pediatric/Adolescent 01/02/1998,1997, 1997 HepB, Unspecified 01/02/1998, 8,1997,1996 Hib (PRP-T) (ACTHIB, HIBERIX) 04/04/1999 ,11/05/1998,03/13/1998,1997,1997 Hib, Unspecified 04/04/1999 IPV 06/05/2004, 2,03/13/1998,1997,1997 Influenza, Injectable, Quadrivalent 06/03/2015 Influenza, Seasonal, Injectable 09/20/2006 Influenza, Unspecified 11/30/2023(Deferr ed: Patient decision),06/03/2015,2014, 007 MCV4 (Menactra)(Discontinued) 12/16/2011 MMR 06/05/2002,11/05/1998 Polio, Unspecified 06/05/2002 SARS-COV-2 (COVID-19) - MODERNA(Discontinued) 11/30/2023(Deferred: Patient decision),02/18/2022 Tdap 01/12/2023,03/25/2020,08/23/2012 HENRIQUE 09/20/2006,07/25/1998 influenza trivalent LAIV (Na robin) (2 years through 49 years) 2014 influenza vaccine quad (FLUZONE/FLUARIX) (6 months and older)(PF) 06/03/2015 Family History Medical History Relation Name Comments Asthma Brother 1 Bridger Asthma Brother 2 Jeanmarie Asthma Brother 3 Shivam Anxiety disorder Mother Morbid obesity Mother Relation Name Status Comments Brother 1 Bridger Brother 2 Jeanmarie Brother 3 Langley Mother Social History Tobacco Use Types Packs/Day Years Used Date Smoking Tobacco: Every Day Cigarettes Smokeless Tobacco: Current Tobacco Cessation:Ready to Q uit: Not Asked; Counseling Given: Not Answered Alcohol Use Standard Drinks/Week Comments Not Currently [...] place to sleep or slept in a prison (including now)? No 02/18/2022 Depression Answer Date Recor ded PHQ-9 Total Score (max 27) 3 11/12 Education Answer Date Recorded What is the highest level of school you have completed or the highest degree you have received? 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 Not on file Not on fi le Last Filed Vital Signs Vital Sign Reading Time Taken Comments Blood Pressure 100/68 01/09/2025 3:[address] Pulse 78 01/09/2025 3:48 PM CDT Temperature 36.1 C (97 F) 01/09/2025 3:48 PM CDT Respiratory Rate 16 01/09/2025 3:48 PM CDT Oxygen Saturation - - Inhaled Oxygen Concentration - - Weight 118 kg (260 lb 5.8 oz) 01/09/2025 3:48 PM CDT Height 158.3 cm (5' 2.32) 01/09/2025 3:48 PM CD T Body Mass Index 47.13 01/09/2025 3:48 PM CDT Plan of Treatment Health Maintenance Due Date Last Done Comments Hepatitis C Screening 1997 Pneumococcal vaccine (0-49 y ears) (1 of 2 - PCV) 2016 COVID-19 Vaccine (3 - 2023-2 5 season) 2024 03/17/2022, 02/18/2022 Tobacco Cessation counseling 11/29/2024 11/30/2023 Influenza Vaccine (#1) 2025 5, 06/03/2015, 06/03/2015, Additional history exists Cervical/Vaginal Cancer Screening 05/18/2026 023, 12/13/2019 DTaP,Tdap,and Td Vaccines (1 0 - Td or Tdap) 01/12/2033 01/12/2023, 03/25/2020, 08/23/2012, Additional history exists Hepatitis B Vaccines Completed 01/02/1998, 01/02/1998, 01/02/1998, Additional history exists IPV Vaccines Completed 06/05/2004, 05/14, 06/05/2002, Additional history exists Varicella Vaccines Completed 09/20/2006, 07/25/1998 HPV Vaccines Completed 12/16/2011, 01/2012, 04/01/2011, Additional history exists Chlamydia and Gonorrhea Screening Discontinued 015 HIV Screening Completed 10/29/2019, 10/15/2014 Hepatitis B Screening Discontinued 10/29/2019 Depression Screening (Annual PHQ-2) Completed 01/09/2025, 01/09/2025 Procedures Procedure Name Priority Date/Time Associated Diagnosis Comments AK URINALYSIS AUTO W MICRO Routine 01/09/2025 4:25 PM CDT URINALYSIS WITH MICROSCOPIC IF INDICATED, U Routine 01/09/2025 4:25 PM CDT Dysuria BACTERIAL CULTURE, AEROBIC + SUSC, URINE Routine 01/09/2025 4:25 PM CDT Dysuria VAGINITIS PANEL, AMPLIFIED RNA Routine 01/09/2025 4:05 PM CDT Dysuria THINPREP SCREEN HPV REFLEX Routine 12/13/2019 1:55 PM CDT Examination Normal First First Trimester HIV-1/-2 AG AND AB SCRN, PLASMA Routine 10/29/2019 11:58 AM SALES ORDER CLERK Examination Test With Positive Result HEPATITIS B SURFACE ANTIGEN Routine 10/29/2019 11:58 AM SALES ORDER CLERK Examination Test With Positive Result C TRACH AMP RNA Routine 10/15/2014 3:30 PM SALES ORDER CLERK from Last 3 Months or Most Recently Relevant to Health Maintenance Results * (ABNORMAL) Urinalysis with Microscopic if Indicated: Urine, Midstream (01/09/2025 4:25 PM CDT) Source Urine, Urine, Midstream 01/09/2025 4:25 PM CDT FB60 Clarity Clear Clear 01/09/2025 4:28 PM CDT FB60 Color Yellow 01/09/2025 4:28 PM CDT FB60 Comment: ----REFERENCE VALUE---- Colorless Yellow Yissel Blood Moderate(A) Negative 01/09/2025 4:28 PM CDT FB60 Nitrite Negative Negative 01/09/2025 4:28 PM CDT FB60 Leukocyte Esterase Negative Negative 01/09/2025 4:28 PM CDT FB60 Protein Trace mg/dL 01/09/2025 4:28 PM CDT FB60 Comment: ----REFERENCE VALUE---- Negative Trace Glucose Negative Negative mg/dL 01/09/2025 4:28 PM CDT FB60 Ketones, QI(U) Negative Negative mg/dL 01/09/2025 4:28 PM CDT FB60 Bilirubin Negative Negative 01/09/2025 4:28 PM CDT FB60 pH 6.5 5.0 - 8.0 01/09/2025 4:28 PM CDT FB60 Specific [place] 1.025 1.001 - 1.035 01/09/2025 4:28 PM CDT FB60 Urobilinogen 0.2 0.2 - 1.0 mg/dL 01/09/2025 4:28 PM CDT FB60 Urine (Urine, Midstream) 01/09/2025 4:25 PM CDT 01/09/2025 4:25 PM CDT us Denise Templeton APRN, C.N.P., D.N.P. LA B URINE ORDERABLES Final Result Performing Organization Address City/[facility]/ZIP Co de Phone Number [address] [place] [address], [facility] FB[address] [address] * (ABNORMAL) Microscopic Manual (01/09/2025 4:25 PM CDT) White Blood Cells None Seen /hpf 01/09/2025 4:40 PM CDT FB60 Comment: ----REFERENCE VALUE---- Males: 0-3 Females: 0-10 Unknown: 0-10 Red Blood Cells 11-20(A) 0 - 2 /hpf 4:40 PM CDT FB60 Dysmorphic Red Blood Cells <=25 <=25 % 01/09/2025 4:40 PM CDT FB60 Urine 01/09/2025 4:25 PM CDT 01/09/2025 4:25 PM CDT us Denise Templeton APRN, C.N.P., D.N.P. LA B URINE ORDERABLES Final Result Performing Organization Address [facility]/ZIP Co de Phone Number [facility] [address] [facility] [place] [address], [facility] FB60 [facility] in [address] [place] [address] * Bacterial Culture, Aerobic + Susceptibility, Urine (01/09/2025 4:25 PM CDT) Pathologist [facility] Urine Culture Urogenital microbiota, susceptibilities not performed per laboratory criteria. 01/10/2025 11:57 AM CDT MKTO Urine (Urine, Midstream) 01/09/2025 4:25 PM CDT 01/09/2025 6:41 PM CDT Comment:Specimen Source Site : Urine Denise Templeton APR N, C.N.P., D.N.P. LAB MICROBIOLOGY - GENERAL [place] [address], [facility] [place] [address] * (ABNORMAL) Vaginitis Panel, Amplified RNA (01/09/2025 4:05 PM CDT) Pathologist [facility] Bacterial Vaginosis, Amplified RNA Positive( A) Negative 01/09/2025 10:26 PM CDT MKTO Comment: Results should be interpreted alongside clinical presentation. Up to 40% of asymptomatic patients may test positive by this assay. Assay result is based on relative amounts of Lactobacillus (L. gasseri, L. crispatus, L. jensenii), Gardnerella vaginalis and Atopobium vaginae. Individual organisms are not reported. Kianna species, Amplified RNA Inconclus grover(A) Negative 01/10/2025 6:57 AM CDT TO Kianna glabrata, Amplified RNA Inconclus grover(A) Negative 01/10/2025 6:57 AM CDT [facility] Trichomonas vaginalis Amplified RNA Inconclus grover(A) Negative 01/10/2025 6:[address] [facility] Swab (Vagina) 01/09/2025 4:0 5 PM CDT 01/09/2025 6:42 PM CDT Denise Templeton APR N, C.N.P., D.N.P. LAB MICROBIOLOGY - GENERAL ORDERABLES Final Result Performing Organization Address City/[facility]/ZIP Co de Phone Number [facility] [address] [place] [address], [facility] MKTO [address] [address] * ThinPrep Screen HPV Reflex (12/13/2019 1:55 PM CDT) 12/14/2019 9:58 AM CDT [facility] Report electronically signed by BRYAN Guy(ASCP) I verify that I have examined all relevant slides/materials for the specimen(s) and rendered or confirmed the diagnosis. 12/14/2019 9:58 AM CDT [facility] Gross Description Received specimen in a ThinPrep vial. 12/14/2019 9:58 AM CDT [facility] Pap Test Source Cervical/Endocervi nii 12/14/2019 9:58 AM CDT [facility] Clinical History screen 12/14/19 20 9:58 AM CDT [facility] Menstrual Status(LMP, PM, ) 12/14/2019 9:58 AM CDT [facility] Hormone Therapy/Contracep tives None/Not known 12/14/2019 9:58 AM CDT [facility] Interpretation Cervical/Endocervi nii (ThinPrep): Satisfactory for Evaluation Endocervical/trans formation zone components absent Negative for Intraepithelial Lesion or Malignancy 12/14/2019 9:58 AM CDT [facility] Varies (Cervix/Endocerv ix) 12/13/2019 1:55 PM CDT 12/14/2019 6:50 AM CDT us Rosalio Cervantes Jr., M.D. LAB PAP PATHDX ORDERAB LES Final Result Performing Organization Address [facility] Co de Phone Number [facility] [address] [place] [address], [facility] HKCY [facility] [address] [place] [address] * HIV-1/-2 Ag and Ab Scrn, Plasma (10/29/2019 11:58 AM SALES ORDER CLERK) HIV Ag/Ab Scrn, P Negative Negative 10/30/2019 2:30 PM SALES ORDER CLERK [facility] Comment: Negative result does not rule out HIV infection. If exposure to HIV infection occurred <14 days ago, contact the laboratory to request addition of HIV-1 RNA detection / quantification test. HIV-1 p24 Ag Scrn, P Negative Negative 10/30/2019 2:30 PM SALES ORDER CLERK [facility] Comment: Negative result does not rule out HIV infection. If exposure to HIV infection occurred <14 days ago, contact the laboratory to request addition of HIV-1 RNA detection / quantification test. HIV-1 Ab Scrn, P Negative Negative 10/30/2019 2:30 PM SALES ORDER CLERK [facility] Comment: Negative result does not rule out HIV infection. If exposure to HIV infection occurred <14 days ago, contact the laboratory to request addition of HIV-1 RNA detection / quantification test. HIV-2 Ab Scrn, P Negative Negative 10/30/2019 2:30 PM SALES ORDER CLERK [facility] Comment: Negative result does not rule out HIV infection. If exposure to HIV infection occurred <14 days ago, contact the laboratory to request addition of HIV-1 RNA detection / quantification test. Blood (Blood, Venous) 10/29/2019 11:58 AM SALES ORDER CLERK 10/30/2019 11:31 AM SALES ORDER CLERK Izabela Pollard M.D. LAB MICROBIOLOGY - BL OOD ORDERABLES Final Result [facility] [address] [place] [address], [facility] in [place] [address] * Hepatitis B Surface Antigen (10/29/2019 11:58 AM SALES ORDER CLERK) HBs Antigen, S Nonreactive Nonreactive 10/29/19 11:25 PM SALES ORDER CLERK AUST Comment: Biotin has been identified by the methods specialist engineer as a potential interfering substance. Higher concentrations of biotin may be found in multivitamins, hair/nail supplements, and workout supplements. If the result does not match clinical observations, repeat testing after patient refrains from the use of supplements for at least 12 hours. Blood (Blood, Venous) 10/29/2019 11:58 AM SALES ORDER CLERK 10/29/2019 10:56 PM SALES ORDER CLERK us Izabela Pollard M.D. LAB MICROBIOLOGY - BL OOD ORDERABLES Final Result [facility] [address] [place] [address], [facility] AUST [facility] [address] [place] [address] * HX-C trach Amp RNA (10/15/2014 3:30 PM SALES ORDER CLERK) Chlamydia trachomatis amplified RNA Negative POWERCHART 10/15/2014 3:30 PM SALES ORDER CLERK us Rosalio Cervantes Jr., M.D. LAB HISTORICAL ORDERS Final Result POWERCHART from Last 3 Months or Most Recently Relevant to Health Maintenance Insurance [facility] Care Teams Storm Door Maker Relationship Specialty Start Date End Date Kosta Staples P.A.-C. [address] [place] [phone] PCP - General 02/24/17
[2025-03-16 13:04] VITALS: BP 125/80; PULSE 86; RESP 16; TEMP 36.7; O2SAT 98; BMI 46.6
--- NOTE | 2025-03-16 14:27 | CRLHL7_ITS ---
For Patients: As a result of the Century Cures Act, medical imaging exams and procedure reports are released immediately into your electronic medical record. You may view this report before your referring provider. If you have questions, please contact your health care provider. INDICATION: Pain in left calf. TECHNIQUE: Ultrasound venous duplex lower left extremity. Compression venous exam was performed using garcia-scale, color Doppler, and spectral Doppler analysis. COMPARISON: None. FINDINGS: Deep veins: Sonographic imaging demonstrates the left common femoral, deep femoral, superficial femoral, popliteal, posterior tibial and the contralateral right common femoral veins to be fully compressible with normal color Doppler blood flow. Superficial veins: Greater saphenous vein is fully compressible. IMPRESSION: No sign of deep venous thrombosis in the left lower extremity. Dictated by Dilshad Poole MD @ 03/16/2025 4:01:24 PM (Electronically Signed)
--- NOTE | 2025-03-16 14:27 | CRLHL7_ITS ---
For Patients: As a result of the Cures Act, medical imaging exams and procedure reports are released immediately into your electronic medical record. You may view this report before your referring provider. If you have questions, please contact your health care provider. INDICATION: Tibia Pain -NO injury TECHNIQUE: Tibia-fibula radiograph 2 views left COMPARISON: None FINDINGS: Bone: No acute fractures or aggressive bone lesions are identified. Joint: The visualized knee and ankle joints are unremarkable. No significant joint effusion is seen. Soft tissue: Unremarkable. No radiopaque foreign bodies are seen. IMPRESSION: 1. No acute osseous injuries or abnormalities are noted. Dictated by: Nathan Arauz MD @ 03/16/2025 15:00:45 (Electronically Signed)
--- NOTE | 2025-03-16 14:49 | ED_ITS ---
HPI - Extremity Injury (Lower) General Date Seen: 03/16/25 Chief Complaint: Extremity Pain/Injury, Lower Stated Complaint: left calf pain Time Seen by Provider: 03/16/25 13:10 Source: patient Mode of arrival: ambulatory Limitations: no limitations History of Present Illness HPI Narrative: Patient is a 29-year-old female who presents ambulatory to the emergency room for left lower leg injury in her midposition on her tibial area, noted a bruise there few days ago, went tubing yesterday on the reverse is now sharp pains in the front lower leg when she is walking or leg bearing. She took some ibuprofen before coming in, she does not remember any significant injury to the area, she does admit that she had poor son management yesterday. Denies a history of previous blood clots she is on no oral or contraceptives. There is however a family history of this she is a smoker. Denies any chest pain shortness of breath syncope Related Data Home Medications ?Medication ?Instructions ?Recorded ?Confirmed docosahexaenoic acid 200 mg See Rx Instructions PO PAPO LY 08/16/22 03/16/25 capsule ( DHA) Previous Rx's ?Medication ?Instructions ?Recorded ibuprofen 600 mg tablet 600 mg PO Q6H PRN Pain #60 t abs 03/20/23 norethindrone (contraceptive) 0.35 0.35 mg PO QDAY #84 tabs 05/18/23 mg tablet (Bev) Allergies Allergy/AdvReac Type Severity Reaction Status Date / Time acetaminophen Allergy Mild Nausea Verified 05/18/23 09:29 Review of Systems Status of ROS: Reports: 10 or more systems reviewed and unremarkable except as noted in History and below PFSH PFS Medical History Nausea/vomiting in ?O21.9 - Vomiting of , unspecified (ICD-10) Vitamin D deficiency ?E55.9 - Vitamin D deficiency, unspecified (ICD-10) Obesity ?E66.9 - Obesity, unspecified (ICD-10) Depression ?F32.A - Depression, unspecified (ICD-10) Surgical History History of ERCP ?Z98.890 - Other specified postprocedural states (ICD-10) History of cholecystectomy ?Z90.49 - Acquired absence of other specified parts of digestive tract (ICD- 10) History of tonsillectomy ?Z90.89 - Acquired absence of other organs (ICD-10) Status post delivery (06/17/20) ?Z98.891 - History of uterine scar from previous surgery (ICD-10) Social History Narrative: 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 Significant other. History of tobacco use, quit at 4 weeks gestation. What is your current living situation?: I presently have a place to live Problems where you live: no known problems In the past 12 months, utilities in danger of being shut off: no In past 12 months, lack of transportation kept you from medical appts, meetings, work, or getting things needed for daily living: no In the past 12 mos, have been you worried that your food would run out before you had money to buy more?: never true In the past 12 mos, the food you bought just didn't last and you didn't have money to buy more?: never true Smoking Status: Never smoker How often does anyone, including family, friends and others, physically hurt you : never How often does anyone, including family, friends and others, insult or talk down to you: never How often does anyone, including family, friends and others, threaten you with harm: never How often does anyone, including family, friends and others, scream or curse at you: never Exam Narrative: Exam Narrative: On examination in room 4 she has appears to be in no apparent distress she is pleasant alert she has normal vital signs, left leg shows redness on her anterior leg, consistent with a sunburn. Distal pulses DP and posterior tibial are normal, she has normal neurologic function with normal motor and sensory function of her leg, on her midposition of her tibia appears to be almost a bruise like phenomena deep to the sunburn. There is no significant edema. Swelling, Homans test is negative, she is able to walk in barely weight although she does appear uncomfortable. Const: Vital Signs, click to edit/add: Vital Signs - 24 hr 03/16/25 13:04 Temperature 98.0 F Pulse Rate [Pulse Oximeter] 86 Respiratory Rate 16 Blood Pressure [Ri ght Upper Arm] 125/80 Pulse Oximetry 98 Oxygen Delivery Me thod Room Air Course Reevaluation(s) Time of Reevaluation #1: 15:49 Reevaluation #1: X-ray shows no evidence of fracture, ultrasound per the tech shows no evidence of blood clot, this point we will discharge her home, use of ibuprofen I think it is possible that she ruptured a small blood vessel, or that this could be erythema nodosum. Recommend follow-up as needed or for ongoing signs symptoms she was very comfortable this plan. If the radiological read shows anything other than normal I will call her. Vital Signs Vital signs: Initial Vital Signs Temperature 98.0 F 03/16/25 13:04 Temperature Source Temporal Artery Scan 03/16/25 13:04 Pulse Rate 86 03/16/25 13:04 Pulse Rhythm Regular 03/16/25 13:04 Respiratory Rate 16 03/16/25 13:04 Blood Pressure 125/80 03/16/25 13:04 Blood Pressure Mean 95 03/16/25 13:04 Blood Pressure Position Sitting 03/16/25 13:04 Pulse Oximetry 98 03/16/25 13:04 Oxygen Delivery Method Room Air 03/16/25 13:04 Vital Signs Temperature 98.0 F 03/16/25 13:04 Pulse Rate 86 03/16/25 13:04 Respiratory Rate 16 03/16/25 13:04 Blood Pressure 125/80 03/16/25 13:04 Pulse Oximetry 98 03/16/25 13:04 Oxygen Delivery Method Room Air 03/16/25 13:04 Temperature 98.0 F 03/16/25 13:04 Pulse Rate 86 03/16/25 13:04 Respiratory Rate 16 03/16/25 13:04 Blood Pressure 125/80 03/16/25 13:04 Pulse Oximetry 98 03/16/25 13:04 Oxygen Delivery Method Room Air 03/16/25 13:04 MDM - Extremity Injury (Lower) MDM Narrative Medical decision making narrative: I discussed with her that I think that is unlikely that this is a blood clot but we will go ahead nor ultrasound, the tib-fib x-ray to rule out fracture, other possibilities include spontaneous rupture of a blood vessel deep to the skin, plus or minus erythema nodosum Imaging Data Tib fib x-ray: Attestation: I have reviewed the pertinent imaging results. My impression: Negative x-ray for fracture, ultrasound shows good compressibility, await radiology opinion Discharge Plan Discharge Clinical Impression: Acute leg pain, First degree sunburn Patient Disposition: Home w/ Parent or Adult Condition: Stable Instructions: Leg Pain (ED) Additional Instructions: Home rest use of ibuprofen 600 mg p.o. t.i.d., no evidence of fracture or blood clot on ultrasound. Recommend watchful waiting over this. Follow-up as needed. If ongoing pain Use of sunblock as needed Activity Level: Light activity Prescriptions: No Action DHA 200 mg capsule See Rx Instructions PO DAILY Rx Instructions: 1 tablet orally daily; norethindrone (contraceptive) [Bev] 0.35 mg tablet 0.35 mg PO QDAY Qty: 84 3RF ibuprofen 600 mg Tablet 600 mg PO Q6H PRN (Reason: Pain) Qty: 60 0RF Follow Up/Referrals: Provider,Not a Local [Primary Care Provider, Family Practice] Stand Alone Forms: MyHealth Info Instructions
== END 2025-03-16 15:54 | disposition home or self-care (01) ==
PROVIDERS: Emergency Provider Family Medicine
DX: M79.662 Pain in left lower leg (principal); L55.0 Sunburn of first degree
CPT/HCPCS: 73590; 93971; 99283